=== PATIENT | female | born 1990 | race Caucasian/White ===

== ENCOUNTER → 2021-03-13 | Outpatient (CLI) | payer OTHER ==
[2021-03-15 06:39] LABS: ALTERNARIA TENUIS CNT <0.10 kU/L (()); ASPERGILLUS FUMIGATUS AL COUNT <0.10 kU/L (()); BERMUDA GRASS ALLERGEN COUNT <0.10 kU/L (()); BOX ELDER-MAPLE ALLERGEN COUNT <0.10 kU/L (()); CAT DANDER ALLERGEN COUNT <0.10 kU/L (()); CLADOSPORIUM ALLERGEN COUNT <0.10 kU/L (()); COCKROACH ALLERGEN COUNT <0.10 kU/L (()); COTTONWOOD TREE ALLERGEN COUNT <0.10 kU/L (()); DOG DANDER ALLERGEN COUNT <0.10 kU/L (()); DUST MITES (D.F.) ALLERG COUNT <0.10 kU/L (()); DUST MITES (D.P.) ALLERG COUNT <0.10 kU/L (()); ELM TREE ALLERGEN COUNT <0.10 kU/L (()); FIREBUSH ALLERGEN COUNT <0.10 kU/L (()); OAK ALLERGEN COUNT <0.10 kU/L (()); ROUGH MARSH ELDER ALLERG COUNT <0.10 kU/L (()); RUSSIAN THISTLE ALLERGEN COUNT <0.10 kU/L (()); SHORT RAGWEED ALLERGEN COUNT <0.10 kU/L (())
== END ==
LOC: LAB 09:51
PROVIDERS: Family Medicine
DX: R10.9 Unspecified abdominal pain (principal)

== ENCOUNTER → 2021-04-25 | Day surgery (SDC) | payer OTHER | LOC: MSO 08:01 | DX: K21.00 Gastro-esophageal reflux disease with esophagitis, without bleeding (principal); K25.7 Chronic gastric ulcer without hemorrhage or perforation; F41.1 Generalized anxiety disorder; L70.0 Acne vulgaris; Z79.899 Other long term (current) drug therapy | CPT/HCPCS: 00731; J2405; J2704; J7120 ==

== ENCOUNTER → 2021-05-07 | Outpatient (REF) | LOC: LAB 10:37 | DX: R11.2 Nausea with vomiting, unspecified (principal) ==

== ENCOUNTER → 2021-05-08 | Outpatient (REF) | LOC: LAB 15:06 | DX: D50.9 Iron deficiency anemia, unspecified (principal) ==